=== PATIENT | female | born 1955 | race Caucasian/White ===

== ENCOUNTER 2025-02-20 11:03 | Day surgery (SDC) | payer MEDICARE ==
[2025-02-20 12:05] VITALS: BP 137/65; TEMP 98.4
[2025-02-20] MEDS: Zoledronic Acid/Mannitol&Water 5 MG in Premix 1 BAG IVPB SCH (12:05)
== END 2025-02-20 13:04 | disposition home or self-care (01) ==
LOC: ONC/OP 11:03
PROVIDERS: ATTEND Internal Medicine Endocrinology, Diabetes & Metabolism
DX: M85.9 Disorder of bone density and structure, unspecified (principal)
CPT/HCPCS: 96365; J3489